=== PATIENT | male | born 1980 | race Caucasian/White ===

== ENCOUNTER 2022-01-15 19:26 | Emergency (ER) | payer OTHER, SELFPAY ==
[2022-01-15] MEDS ORDERED: Ketorolac Tromethamine 30 MG/ML VIAL ONE (19:50)
[2022-01-15] MEDS ORDERED: Fentanyl 100 MCG/2 ML VIAL ONE (19:51)
[2022-01-15] MEDS ORDERED: Acetaminophen 500 MG TAB ONE (19:51)
[2022-01-15] MEDS ORDERED: Ketamine 50 MG/ML (10ML VIAL) ONE (21:04)
[2022-01-15] MEDS ORDERED: PROPOFOL 20 ML ONE (21:04)
== END 2022-01-15 22:53 | disposition left against medical advice (07) ==
LOC: CSHERS 19:26
DX: S43.015A Anterior dislocation of left humerus, initial encounter (principal); W18.30XA Fall on same level, unspecified, initial encounter
CPT/HCPCS: 23650; 94760; 96374; 96375; 99152; 99153; J1885; J2704; J3010